=== PATIENT | male | born 1940 | race Caucasian/White ===

== ENCOUNTER 2020-08-11 08:25 | Emergency (ER) | payer OTHER, SELFPAY ==
[2020-08-11] VITALS (10 sets, daily range): BP systolic 134–174; BP diastolic 69–102; PULSE 51–80; RESP 12–18; TEMP 36.4; O2SAT 93–100; BMI 26.1
--- NOTE | 2020-08-11 08:34 | DI.RAD.S_ITS ---
PROCEDURE: XR ACUTE ABDOMEN SERIES INDICATIONS: SOB, Abdominal pain TECHNIQUE: One view chest and two views of the abdomen were acquired. COMPARISON: None. FINDINGS: Surgical changes and devices: None. Chest: Lungs are clear. Heart size is normal. No pleural effusions. No pneumoperitoneum. Abdomen: Bowel gas pattern is normal. Pelvic phleboliths. Visualized solid organ contours appear normal. Bones: No suspicious bony lesions. Diffuse degenerative changes of the spine. Mild degenerative changes of the hips. IMPRESSION: No evidence of an acute cardiopulmonary abnormality. Nonobstructive bowel gas pattern. Dictated by: Missael Diana D.O. on 08/11/2020 at 8:11 Approved by: Missael Diana D.O. on 08/11/2020 at 8:12
[2020-08-11] MEDS: SODIUM CHLORIDE 0.9% 1,000 ML 125 ML IV (08:40)
--- NOTE | 2020-08-11 08:41 | ED.SOB ---
HPI - SOB/Dyspnea General Chief Complaint: Abdominal Pain Stated Complaint: SOB, pancreas issues. Dr riddle Time Seen by Provider: 08/11/20 08:28 Source: patient Mode of arrival: Ambulatory Limitations: no limitations History of Present Illness HPI Narrative: 80-year-old male former smoker with history of pancreatic mass presents with his in the chief complaint of a 1-2 weeks of increasing abdominal swelling, discomfort and trouble breathing. He denies runny nose, sore throat or cough. He denies significant shortness of breath with exertion and bloating of his abdomen. He is not dizzy nor weak or lightheaded. He denies any recent travel or exposure to persons with known COVID. 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 He had been at his relative baseline 4 months until it started becoming symptomatic again. He has been to an outside emergency department twice in the past 2 weeks and has received blood work and CAT scans which (per the patient, we are awaiting records) that the cyst is back and doubled in size. He has been trying to get a referral back to GI at [facility] but has thus far been unsuccessful. MD Complaint: shortness of breath Onset (ago): week(s) Severity: moderate Consistency/Duration: constant Relieving factors: nothing Treatment prior to arrival: none Related Data Home oxygen amount: none Allergies Allergy/AdvReac Type Severity Reaction Status Date / Time No Known Drug Allergies Allergy Verified 08/11/20 08:39 Review of Systems Constitutional Constitutional: Denies chills, Denies fatigue, Denies fever(s), Denies frequent falls, Denies lethargy and Denies weakness Eyes Eyes: Denies change in vision, Denies eye discharge, Denies irritation and Denies loss of vision ENT Ears, Nose, Mouth, and Throat: Denies change in voice, Denies dizziness, Denies neck pain, Denies sore throat and Denies throat swelling Cardiovascular Cardiovascular: Denies chest pain, Denies irregular heart rhythm, Denies lightheadedness, Denies palpitations, Denies dyspnea, Denies dyspnea on exertion and Denies orthopnea Respiratory Respiratory: Denies cough, Denies dyspnea, Denies dyspnea on exertion and Denies wheezing Gastrointestinal Gastrointestinal: Reports abdominal pain, Reports bloating, Denies change in bowel habits, Denies diarrhea, Denies nausea and Denies vomiting Musculoskeletal Musculoskeletal: Denies neck pain and Denies numbness Integumentary/Breasts Skin/Breast: Denies pruritus, Denies erythema, Denies rash and Denies wounds Neurologic Neurologic: Denies behavioral changes, Denies confusion, Denies dizziness, Denies frequent falls, Denies loss of vision, Denies numbness and Denies weakness Psychiatric Psychiatric: Denies anxiety, Denies behavioral changes, Denies confusion, Denies depression, Denies homicidal ideation and Denies suicidal ideation Endocrine Endocrine: Denies fatigue, Denies flushing and Denies palpitations Hematologic/Lymphatic Hematologic/Lymphatic: Denies easy bruising Allergic/Immunologic Allergic/Immunologic: Denies urticaria, Denies throat swelling and Denies wheezing Patient History Social History Smoking Status: Former smoker Smoking Status: Former smoker Substance Use Type: does not use Exam Narrative Exam Narrative: GENERAL: [80] year old patient appears stated age. Well-nourished, well-developed patient, in mild distress. Some increased work of breathing HEAD: Atraumatic. Normocephalic. EYES: Pupils equal round and reactive. Extraocular motions intact. No scleral icterus. No injection or drainage. ENT: Nose without bleeding, purulent drainage. Throat without erythema, tonsillar hypertrophy or exudate. Airway patent. NECK: Trachea midline. Non tender CARDIOVASCULAR: Regular rate and rhythm without murmurs, gallops, or rubs. RESPIRATORY: Clear to auscultation. Breath sounds equal bilaterally. No wheezes, rales, or rhonchi. GASTROINTESTINAL: Distended, tender in the upper portions, bowel sounds distant but present EXTREMITIES: No edema or joint tenderness. BACK: Nontender without deformity or crepitance. No flank tenderness. NEURO: AOx3. SKIN: No rash or erythema of visible areas Initial Vital Signs Initial Vital Signs: Vital Signs Temperature 97.5 F L 08/11/20 08:25 Pulse Rate 72 08/11/20 08:25 Respiratory Rate 12 08/11/20 08:25 Blood Pressure 157/81 H 08/11/20 08:25 Pulse Oximetry 100 08/11/20 08:25 Course Orders Ordered: Discontinued Medications Hydromorphone HCl (Hydromorphone 0.5 Mg Inj) 0.5 mg IV NOW ONE Stop: 08/11/20 09:30 Last Admin: 08/11/20 09:39 Dose: 0.5 mg Documented by: HERBERT Sodium Chloride (Normal Saline 0.9%) 1,000 mls @ 125 mls/hr IV CONT DENNIS Last Admin: 08/11/20 08:40 Dose: 125 mls/hr Documented by: ТАТЬЯНА Consultations Consultation #1: call to Prov to consult with GI regarding next steps. Given no abnormal labs or US we discussed imaging. MRI vs. CT w/pancreatic protocol. No ability to do the MRI today. CT ordered upon completion of CT I called GI back, she will be sure to have the office call thursday for follow up. No indication for admission or transfer tonight. Pain control only. Vital Signs Vital signs: Vital Signs - 8 hr 08/11/20 11:30 08/11/20 12:09 08/11/20 12:11 Pulse Rate 54 L 63 60 Respiratory Rate Blood Pressure 143/72 H Pulse Oximetry 99 93 99 08/11/20 12:30 08/11/20 13:00 08/11/20 13:30 Pulse Rate 58 L 53 L 61 Respiratory Rate 18 Blood Pressure 134/69 134/69 Pulse Oximetry 99 99 98 MDM - SOB/Dyspnea Medical Records Medical records narrative: 0905 - records obtained from [facility] notes mass in tail of pancreas. Labs normal. Enhancing foci within the lateral segment of the left hepatic lobe as well as right and left hepatic lobe junction, 40 mm mass in tail of pancreas is suspicious for malignancy Lab Data Result diagrams: 08/11/20 08:39 08/11/20 08:39 Labs: Lab Results 08/11/20 08/11/20 08/11/20 Range/Units 08:39 08:39 08:39 WBC 6.2 (4.5-11.0) X10^3/uL RBC 4.75 (4.5-5.9) X10^6/uL Hgb 14.8 (13.5-17.5) g/dL Hct 43.2 (41-53) % MCV 90.8 (80-100) fL MCH 31.2 (26-34) PG MCHC 34.3 (30-36) % RDW 13.6 (11.6-14.8) % Plt Count 237 (150-400) X10^3/uL Neut % (Auto) 45.8 L (50-75) % Lymph % (Auto) 44.0 H (25-40) % [place] % (Auto) 7.7 (3-14) % Eos % (Auto) 1.7 L (2-4) % Baso % (Auto) 0.8 (0-2) % Neut # (Auto) 2800 (9324-0395) /uL Lymph # (Auto) 2700 (3219-1272) /uL [place] # (Auto) 500 (0-900) /uL Eos # (Auto) 100 (0-450) /uL Baso # (Auto) 0 (0-100) /uL PT 11.6 (10.1-12.7) SECONDS INR 1.0 (0.9-1.3) Sodium 140 (137-145) mmol/L Potassium 4.6 (3.4-5.1) mmol/L Chloride 106 (98-107) mmol/L Carbon Dioxide 26 (22-32) mmol/L BUN 15 (9-20) mg/dL Creatinine 0.73 (0.66-1.25) mg/dL Estimated GFR > 60.0 (>60) mL/min BUN/Creatinine Ratio 20.5 (6-22) Glucose 82 (80-110) mg/dL Lactate (0.7-2.1) mmol/L Calcium 9.8 (8.4-10.2) mg/dL Magnesium 1.9 (1.6-2.3) mg/dL Total Bilirubin 1.1 (0.2-1.3) mg/dL AST 47 (17-59) IU/L ALT 22 (<50) IU/L Alkaline Phosphatase 43 (38-126) U/L Total Creatine Kinase 257 H (55-170) U/L CK-MB (CK-2) 2.72 H (<2.37) ng/mL CK-MB (CK-2) Rel Index 1.1 L (1.5-5.0) % Troponin I 0.013 (0.01-0.034) ng/mL NT-Pro-B Natriuret Pep 108 (<450) pg/mL Total Protein 8.0 (6.3-8.2) g/dL Albumin 4.6 (3.5-5.0) g/dL Globulin 3.4 (1.7-4.1) g/dL Albumin/Globulin Ratio 1.4 (1.0-2.8) Lipase (23-300) U/L SARS-CoV-2 (PCR) (Negative) 08/11/20 08/11/20 08/11/20 Range/Units 08:39 08:39 08:55 WBC (4.5-11.0) X10^3/uL RBC (4.5-5.9) X10^6/uL Hgb (13.5-17.5) g/dL Hct (41-53) % MCV (80-100) fL MCH (26-34) PG MCHC (30-36) % RDW (11.6-14.8) % Plt Count (150-400) X10^3/uL Neut % (Auto) (50-75) % Lymph % (Auto) (25-40) % [place] % (Auto) (3-14) % Eos % (Auto) (2-4) % Baso % (Auto) (0-2) % Neut # (Auto) (3576-8401) /uL Lymph # (Auto) (4877-4170) /uL [place] # (Auto) (0-900) /uL Eos # (Auto) (0-450) /uL Baso # (Auto) (0-100) /uL PT (10.1-12.7) SECONDS INR (0.9-1.3) Sodium (137-145) mmol/L Potassium (3.4-5.1) mmol/L Chloride (98-107) mmol/L Carbon Dioxide (22-32) mmol/L BUN (9-20) mg/dL Creatinine (0.66-1.25) mg/dL Estimated GFR (>60) mL/min BUN/Creatinine Ratio (6-22) Glucose (80-110) mg/dL Lactate 1.7 (0.7-2.1) mmol/L Calcium (8.4-10.2) mg/dL Magnesium (1.6-2.3) mg/dL Total Bilirubin (0.2-1.3) mg/dL AST (17-59) IU/L ALT (<50) IU/L Alkaline Phosphatase (38-126) U/L Total Creatine Kinase (55-170) U/L CK-MB (CK-2) (<2.37) ng/mL CK-MB (CK-2) Rel Index (1.5-5.0) % Troponin I (0.01-0.034) ng/mL NT-Pro-B Natriuret Pep (<450) pg/mL Total Protein (6.3-8.2) g/dL Albumin (3.5-5.0) g/dL Globulin (1.7-4.1) g/dL Albumin/Globulin Ratio (1.0-2.8) Lipase 311 H (23-300) U/L SARS-CoV-2 (PCR) Negative (Negative) Imaging Data CT scan - abdomen/pelvis: Radiologist's Impression: Chart Viewer Diagnostics DATE TYPE STATUS REF RANGE/AUTHOR Hx 08/11/20 10:35 Lebron,Missael 08/11/20 08:46 Lebron,Missael 08/11/20 08:34 Missael Diana Rashaun Yang 80, M105/10/1939 [facility] ER, Main ED 180.34cm 85.049kg BMI: 26.2kg/m? Abdominal Pain Search Chart No Data to Display No Data to Display ONSET 08/11/20 13:30 Rashaun Yang 80 M [address] Scan ReportSigned Patient: Rashaun YangMR#: [id number]: 1940cct:[id number]/Sex: 80 / MDate of Service: 08/11/20Loc: EDAccession Number: [id number] Procedure: CT abdomen w con Ordering Provider: Samson Castaneda D.O. PROCEDURE: CT ABDOMEN W CON INDICATIONS: severe abdominal pain, distension, short of breath TECHNIQUE: After the administration of intravenous contrast, 5 mm thick sections acquired from the diaphragm to the iliac crests. 5 mm coronal and sagittal reformats were performed. For radiation dose reduction, the following was used: automated exposure control, adjustment of mA and/or kV according to patient size. COMPARISON: [facility], , US ABDOMEN COMPLETE, 08/11/2020, 9:29. CT abdomen pelvis dated 01/16/2020, 08/01/2020, and 08/09/2020 at [facility]. FINDINGS: Image quality: Excellent. Lung bases: Basilar atelectasis. There is a small hiatal hernia. Mild wall thickening of the distal esophagus. Recommend correlation for reflux. No pericardial effusion. Heart size is normal. Solid organs: Right hepatic lobe lesion is again identified which demonstrates peripheral nodular discontinuous enhancement with delayed centripetal filling. Left hepatic lobe enhancing lesion demonstrates enhancement with continued enhancement on the portal venous phase. Adjacent peripheral attenuation abnormalities likely represent attenuation differences. Subcentimeter left hepatic lobe hypodensity too small to further characterize but statistically represents a simple cyst and unchanged. Gallbladder is unremarkable. Biliary system is non dilated. Within the tail of the pancreas is a multilobulated cystic structure with enhancing septa and likely enhancing nodular component. This measures approximately 3.7 x 2.6 by 3.0 centimeters. This is grossly unchanged in size and appearance from comparison CTs. No surrounding inflammation. Spleen is normal in size and enhancement. No adrenal nodules. Kidneys demonstrate normal size and enhancement, without hydronephrosis. Stable left superior pole hypodensity likely representing simple cysts. Peritoneum and bowel: Bowel loops demonstrate normal wall thickness and caliber. No free fluid or air. Nodes and vessels: No retroperitoneal or mesenteric adenopathy by size criteria. Aorta and inferior vena cava are normal in size. Miscellaneous: No ventral hernias. Bilateral gynecomastia. IMPRESSION: No acute abnormality. Relatively stable appearance of pancreatic tail mass measuring up to 3.7 centimeters. This is concerning for malignancy. Recommend correlation with pathologic results if previously biopsied. Relatively stable hepatic lobe lesions. The right hepatic lobe lesion is most consistent with a hemangioma. The left hepatic lobe lesion although not definitive may represent a flash fill hemangioma. As previously recommended, consider non emergent liver MRI for further evaluation. Small hiatal hernia. Mild thickening of the distal esophagus which may be seen in the setting of reflux. Dictated by: Missael Diana D.O. on 08/11/2020 at 10:56 Approved by: Missael Diana D.O. on 08/11/2020 at 11:15 US - abdomen: Radiologist's Impression: Rashaun Yang 80 M [address] [id number] ReportSigned Patient: Rashaun YangMR#: [id number]: 2Acct:[id number]/Sex: 80 / MDate of Service: 08/11/20Loc: EDAccession Number: [id number] Procedure: US abdomen complete Ordering Provider: Samson Castaneda D.O. PROCEDURE: US ABDOMEN COMPLETE INDICATIONS: SWELLING ?ASCITES. KNOWN PANCREATIC CYST TECHNIQUE: Real-time scanning was performed of the abdominal and retroperitoneal organs, with image documentation. COMPARISON: None. FINDINGS: Somewhat limited examination given adjacent bowel gas Liver: Liver is normal in size and demonstrates slight increased echogenicity. Gallbladder: Is unremarkable with normal wall thickness. No evidence of stones or pericholecystic fluid. Negative sonographic Conway sign reported by the technologist. Biliary ducts: Intrahepatic bile ducts are non-dilated. Extrahepatic bile duct caliber measures 2.5 mm. Normal is 6-7 mm or less in diameter, or 10 mm or less post-cholecystectomy. Pancreas: The visualized portions of the head and body are unremarkable. There is a hypoechoic it heterogeneous region in the left upper quadrant at the expected location of the pancreatic tail adjacent to the splenic hilum which demonstrates peripheral vascularity without internal vascularity. This measures 3.6 x 3.4 x 3.6 centimeters. Spleen: Spleen is normal in size and homogeneous in echotexture. Punctate region of echogenicity likely representing small calcification. Kidneys: Kidneys are normal in size and echotexture. Right kidney measures 10.1 cm long; left kidney measures 10.9 cm long. No hydronephrosis or nephrolithiasis. No solid masses. Aorta: Visualized aorta is normal in caliber at less than 3 cm. Iliacs: Proximal common iliac arteries are normal in caliber at less than 2.5 cm. IVC: Intrahepatic inferior vena cava is patent. Miscellaneous: No free abdominal fluid. 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 No prior imaging is available for comparison. Consider cross-sectional imaging if further evaluation is necessary. Dictated by: Missael Diana D.O. on 08/11/2020 at 9:38 Approved by: Missael Diana D.O. on 08/11/2020 at 9:44 MDM Narrative Medical decision making narrative: Patient with increasing abdominal pain and shortness of breath over days to weeks. His vital signs are very reassuring and physical exam demonstrates clear lungs but a slightly distended. Labs are very reassuring and imaging would suggest that there is no surgical emergency. His pain is well controlled. He is ambulating without suggestion of respiratory distress. Extensive return precautions discussed with patient and his , questions answered to their apparent satisfaction Discharge Plan Departure Patient Disposition: Home Clinical Impression: Abdominal pain, epigastric Instructions: DI for Epigastric Pain Activity Restrictions/Additional Instructions: *You have been diagnosed with [epigastric pain, labs and CT are stable ] *What to do: *Please continue to take your regular medications as directed. *Please expect a call from Gastroenterology at [facility] on Thursday morning. If you do not hear from them by lunchtime please call them and remind them that you are here in the emergency department and I (Dr. Castaneda) *Return to Emergency Department if you should have any new, worsening or concerning symptoms, such as [fever greater than 101 F, shaking chills, worsening pain, persistent vomiting or other bothersome symptoms] Referrals: Alvarez Waddell MD [Primary Care Provider] -
--- NOTE | 2020-08-11 08:46 | DI.US.S_ITS ---
PROCEDURE: US ABDOMEN COMPLETE INDICATIONS: SWELLING ?ASCITES. KNOWN PANCREATIC CYST TECHNIQUE: Real-time scanning was performed of the abdominal and retroperitoneal organs, with image documentation. COMPARISON: None. FINDINGS: Somewhat limited examination given adjacent bowel gas Liver: Liver is normal in size and demonstrates slight increased echogenicity. Gallbladder: Is unremarkable with normal wall thickness. No evidence of stones or pericholecystic fluid. Negative sonographic Conway sign reported by the technologist. Biliary ducts: Intrahepatic bile ducts are non-dilated. Extrahepatic bile duct caliber measures 2.5 mm. Normal is 6-7 mm or less in diameter, or 10 mm or less post-cholecystectomy. Pancreas: The visualized portions of the head and body are unremarkable. There is a hypoechoic it heterogeneous region in the left upper quadrant at the expected location of the pancreatic tail adjacent to the splenic hilum which demonstrates peripheral vascularity without internal vascularity. This measures 3.6 x 3.4 x 3.6 centimeters. Spleen: Spleen is normal in size and homogeneous in echotexture. Punctate region of echogenicity likely representing small calcification. Kidneys: Kidneys are normal in size and echotexture. Right kidney measures 10.1 cm long; left kidney measures 10.9 cm long. No hydronephrosis or nephrolithiasis. No solid masses. Aorta: Visualized aorta is normal in caliber at less than 3 cm. Iliacs: Proximal common iliac arteries are normal in caliber at less than 2.5 cm. IVC: Intrahepatic inferior vena cava is patent. Miscellaneous: No free abdominal fluid. 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 No prior imaging is available for comparison. Consider cross-sectional imaging if further evaluation is necessary. Dictated by: Missael Diana D.O. on 08/11/2020 at 9:38 Approved by: Missael Diana D.O. on 08/11/2020 at 9:44
[2020-08-11 08:53] LABS: Add Manual Diff / Slide Review NO; Basophils Absolute Auto 0 /uL (0-100); Basophils Percent Auto 0.8 % (0-2); Eosinophils Absolute Auto 100 /uL (0-450); Eosinophils Percent Auto 1.7 % (2-4); Hematocrit 43.2 % (41-53); Hemoglobin 14.8 g/dL (13.5-17.5); Lymphocytes Absolute Auto 2700 /uL (1100-4500); Mean Corpuscular HGB Conc 34.3 % (30-36); Mean Corpuscular Hemoglobin 31.2 PG (26-34); Mean Corpuscular Volume 90.8 fL (80-100); Monocytes Absolute Auto 500 /uL (0-900); Monocytes Percent Auto 7.7 % (3-14); Neutrophils Absolute Auto 2800 /uL (1500-7000); Neutrophils Percent Auto 45.8 % (50-75); Platelet Count 237 X10^3/uL (150-400); Red Blood Cell Count 4.75 X10^6/uL (4.5-5.9); Red Cell Distribution Width 13.6 % (11.6-14.8); White Blood Cell Count 6.2 X10^3/uL (4.5-11.0)
[2020-08-11 08:57] LABS: Prothrombin Time 11.6 SECONDS (10.1-12.7)
[2020-08-11 09:02] LABS: Lactate (Lactic Acid) 1.7 mmol/L (0.7-2.1)
[2020-08-11 09:03] LABS: Alanine Aminotransferase 22 IU/L (<50); Albumin 4.6 g/dL (3.5-5.0); Albumin Globulin Ratio 1.4 (1.0-2.8); Alkaline Phosphatase 43 U/L (38-126); Aspartate Aminotransferase 47 IU/L (17-59); BUN Creatinine Ratio 20.5 (6-22); Bilirubin Total 1.1 mg/dL (0.2-1.3); Blood Urea Nitrogen 15 mg/dL (9-20); Calcium 9.8 mg/dL (8.4-10.2); Carbon Dioxide 26 mmol/L (22-32); Chloride 106 mmol/L (98-107); Creatine Kinase 257 U/L (55-170); Estimated Glomerular Filt Rate > 60.0 mL/min (>60); Globulin 3.4 g/dL (1.7-4.1); Glucose 82 mg/dL (80-110); Magnesium 1.9 mg/dL (1.6-2.3); Potassium 4.6 mmol/L (3.4-5.1); Sodium 140 mmol/L (137-145)
[2020-08-11 09:13] LABS: COVID19 -Nasal RAPID Negative (Negative)
[2020-08-11 09:15] LABS: NT-proBNP (BNP-Adult 18+) 108 pg/mL (<450); Troponin I 0.013 ng/mL (0.01-0.034)
[2020-08-11 09:18] LABS: CKMB % Relative Index 1.1 % (1.5-5.0); Creatine Kinase MB 2.72 ng/mL (<2.37)
[2020-08-11 09:19] LABS: HEMOLYSIS 153 (0-50)
[2020-08-11] MEDS: HYDROMORPHONE 0.5 MG INJ IV (09:39)
--- NOTE | 2020-08-11 10:35 | DI.CT.S_ITS ---
PROCEDURE: CT ABDOMEN W CON INDICATIONS: severe abdominal pain, distension, short of breath TECHNIQUE: After the administration of intravenous contrast, 5 mm thick sections acquired from the diaphragm to the iliac crests. 5 mm coronal and sagittal reformats were performed. For radiation dose reduction, the following was used: automated exposure control, adjustment of mA and/or kV according to patient size. COMPARISON: [facility], , US ABDOMEN COMPLETE, 08/11/2020, 9:29. CT abdomen pelvis dated 01/16/2020, 08/01/2020, and 08/09/2020 at [facility]. FINDINGS: Image quality: Excellent. Lung bases: Basilar atelectasis. There is a small hiatal hernia. Mild wall thickening of the distal esophagus. Recommend correlation for reflux. No pericardial effusion. Heart size is normal. Solid organs: Right hepatic lobe lesion is again identified which demonstrates peripheral nodular discontinuous enhancement with delayed centripetal filling. Left hepatic lobe enhancing lesion demonstrates enhancement with continued enhancement on the portal venous phase. Adjacent peripheral attenuation abnormalities likely represent attenuation differences. Subcentimeter left hepatic lobe hypodensity too small to further characterize but statistically represents a simple cyst and unchanged. Gallbladder is unremarkable. Biliary system is non dilated. Within the tail of the pancreas is a multilobulated cystic structure with enhancing septa and likely enhancing nodular component. This measures approximately 3.7 x 2.6 by 3.0 centimeters. This is grossly unchanged in size and appearance from comparison CTs. No surrounding inflammation. Spleen is normal in size and enhancement. No adrenal nodules. Kidneys demonstrate normal size and enhancement, without hydronephrosis. Stable left superior pole hypodensity likely representing simple cysts. Peritoneum and bowel: Bowel loops demonstrate normal wall thickness and caliber. No free fluid or air. Nodes and vessels: No retroperitoneal or mesenteric adenopathy by size criteria. Aorta and inferior vena cava are normal in size. Miscellaneous: No ventral hernias. Bilateral gynecomastia. IMPRESSION: No acute abnormality. Relatively stable appearance of pancreatic tail mass measuring up to 3.7 centimeters. This is concerning for malignancy. Recommend correlation with pathologic results if previously biopsied. Relatively stable hepatic lobe lesions. The right hepatic lobe lesion is most consistent with a hemangioma. The left hepatic lobe lesion although not definitive may represent a flash fill hemangioma. As previously recommended, consider non emergent liver MRI for further evaluation. Small hiatal hernia. Mild thickening of the distal esophagus which may be seen in the setting of reflux. Dictated by: Missael Diana D.O. on 08/11/2020 at 10:56 Approved by: Missael Diana D.O. on 08/11/2020 at 11:15
[2020-08-11 11:33] LABS: Lipase 311 U/L (23-300)
--- NOTE | 2020-08-15 10:41 | PC.NURSE ---
Late entry: 1 L NS stopped at 1350
== END 2020-08-11 14:02 | disposition home or self-care (01) ==
PROVIDERS: Emergency Provider Emergency Medicine; PCP Internal Medicine
DX: R10.13 Epigastric pain (principal); R06.02 Shortness of breath; Z20.822 Contact with and (suspected) exposure to COVID-19
CPT/HCPCS: 36415; 74022; 74160; 76700; 80053; 82550; 82553; 83605; 83690; 83735; 83880; 84484; 85025; 85610; 87635; 96361; 96374; 99284; C9803; J1170; Q9967

== ENCOUNTER → 2020-09-08 09:22 | Outpatient (CLI) | payer OTHER, SELFPAY ==
[2020-09-08 11:15] LABS: COVID19 -Nasal RAPID Negative (Negative)
== END ==
PROVIDERS: PCP Internal Medicine; Visit Provider Physician Assistant
DX: Z01.812 Encounter for preprocedural laboratory examination (principal); Z20.822 Contact with and (suspected) exposure to COVID-19
CPT/HCPCS: 87635; C9803

== ENCOUNTER → 2020-09-10 07:09 | Outpatient (CLI) | payer OTHER, SELFPAY ==
--- NOTE | 2020-09-10 | DI.NM.S_ITS ---
PROCEDURE: NM EFRAIN PERF SPECT REST & STR Rest and exercise myocardial perfusion SPECT with gated imaging and ejection fraction RADIOPHARMACEUTICAL: 9.0 mCi Tc-99m sestamibi IV at rest and 27.1 mCi Tc-99m sestamibi IV at peak exercise. A one day-protocol was performed. INDICATIONS: Other chest pain TECHNIQUE: Radiopharmaceutical was injected at peak stress test, and also at rest. SPECT images were obtained. SPECT myocardial perfusion images were displayed in short axis, horizontal long axis, and vertical long axis views. Gated images were reviewed using [employer] software. COMPARISON: None. CARDIAC STRESS: A standard Andre treadmill exercise tolerance test was performed by the patient under the supervision of an attending staff. The patient exercised for 5 minutes and 30 seconds; functional aerobic impairment (RUDDY) is 1%. Hemodynamic data: There is normal blood pressure and heart rate response to exercise stress. Patient achieved 107% of maximum predicted heart rate at peak exercise. Symptoms: Patient denied chest pain during exercise. EKG: No diagnostic EKG changes of ischemia; no ectopy. FINDINGS: Raw data: There is good myocardial labeling by radiotracer. No significant motion artifacts. Hutg-sn-snzgv ratio is 0.35 (normal is less than 0.38 for sestamibi tracer, and less than 0.50 for thallium tracer). Left ventricle function: Gated images demonstrate normal left ventricle wall thickening. No segmental wall motion abnormality. No transient ischemic dilation; TID is 1.23 (normal less than 1.3). The left ventricle resting end-diastolic volume is 76 mL. Left ventricle stress ejection fraction is 71%; normal values are above 45%. Myocardial perfusion: There is mildly intense basal to mid inferior wall defect that resolves with prone imaging, suggesting attenuation artifact. No ischemia or infarction. IMPRESSION: Low risk, probably normal treadmill nuclear stress test 1) No perfusion evidence of ischemia or infarction. 2) Normal left ventricular size, wall motion, and systolic function (EF post stress 71%). 3) No ECG evidence of ischemia. 4) No angina during the study. 5) Average exercise tolerance (6.4 METs, RUDDY 1%). Taerget heart rate achieved. Appropriate BP response to exercise. 6) No anging during the study. Dictated by: Marilu Wilcox MD on 09/11/2020 at 16:14 Approved by: Marilu Wilcox MD on 09/11/2020 at 16:17
--- NOTE | 2020-09-10 11:42 | PM.TREADMILL ---
Cardiac Stress Test Report Referral & Results Date Patient Seen: 09/10/20 Time Patient Seen: 11:42 Requesting provider: Alvarez Waddell Indication: Chest pain Rest ECG: Sinus rhythm Procedure Note: Standard Andre protocol, 5:30, 6.4 METS Good exercise capacity, RUDDY -1% Normal hemodynamic response to exercise No chest pain or anginal symptoms No significant ST changes at peak exercise No ectopy Impression: Normal exercise stress test Please note: Actual ECG tracings can be found in the PACS system.
== END ==
PROVIDERS: PCP Internal Medicine; Referring Provider Internal Medicine; Visit Provider Internal Medicine
DX: R07.89 Other chest pain (principal)
CPT/HCPCS: 78452; 93017; A9502

== ENCOUNTER 2021-05-08 09:37 | Emergency (ER) | payer OTHER, SELFPAY ==
[2021-05-08] VITALS (9 sets, daily range): BP systolic 120–153; BP diastolic 59–84; PULSE 58–75; RESP 16–18; TEMP 36.4; O2SAT 94–100; BMI 25.1
--- NOTE | 2021-05-08 09:52 | ED_ITS ---
HPI - Abdominal Pain General Chief Complaint: Abdominal Pain Stated Complaint: severe side/abdominal/under rib pain Time Seen by Provider: 05/08/21 09:47 History of Present Illness HPI narrative: ?81-year-old male former smoker with history of pancreatic mass presents with his in the chief complaint of ongoing left lower quadrant pain for many months. He states that is been present for quite some time and he has had extensive workups including MRIs, ultrasounds, CTs colonoscopy without any significant findings. He was initially seen here back in July and had been told he has a mass on the tail of his pancreas which was at the time concerning for malignancy but per the patient has not turned out to be anything. He denies any fever or chills. He has had no nausea or vomiting but does complain of poor appetite. He denies any dysuria, frequency or urgency. He denies any constipation or diarrhea. Related Data Allergies Allergy/AdvReac Type Severity Reaction Status Date / Time No Known Drug Allergies Allergy Verified 08/11/20 08:39 Review of Systems Review of Systems Narrative: GENERAL: Denies chills, fatigue, malaise, fever, sweats. HEENT: Denies sinus pain, ear pain, sore throat, difficulty swallowing, dizziness. RESPIRATORY: Denies dyspnea, cough, wheezing, hemoptysis, sputum. CARDIOVASCULAR: Denies chest pain, palpitations, orthopnea, edema, GASTROINTESTINAL: See HPI : Denies dysuria, frequency, incontinence, hematuria, urinary retention. MUSCULOSKELETAL: denies weakness, joint pain, or bony pain SKIN: Denies rash, skin lesions, or other NEUROLOGIC: Denies weakness, headache, numbness, change in speech, confusion, seizures, incoordination. PSYCHIATRIC: No concerning psychosocial issues. 12 point review of systems is negative except for those stated above Patient History Social History Smoking Status: Former smoker Smoking Status: Former smoker Substance Use Type: does not use Exam Narrative Exam Narrative: GENERAL: [81 year old patient appears stated age. Well-developed patient, in mild distress. HEAD: Atraumatic. Normocephalic. EYES: Pupils equal round and reactive. Extraocular motions intact. No scleral icterus. No injection or drainage. ENT: Nose without bleeding, purulent drainage. Throat without erythema, tonsillar hypertrophy or exudate. Airway patent. NECK: Trachea midline. Non tender CARDIOVASCULAR: Regular rate and rhythm without murmurs, gallops, or rubs. RESPIRATORY: Clear to auscultation. Breath sounds equal bilaterally. No wheezes, rales, or rhonchi. GASTROINTESTINAL: Abdomen soft, tender throughout the abdomen, mild distension, bowel sounds present EXTREMITIES: No edema or joint tenderness. BACK: Nontender without deformity or crepitance. No flank tenderness. NEURO: AOx3. SKIN: No rash or erythema of visible areas Initial Vital Signs Initial Vital Signs: Vital Signs Pulse Rate 73 05/08/21 09:47 Pulse Oximetry 97 05/08/21 09:47 Course Orders Ordered: ED Orders 05/08/21 10:14 CT chest abd pel w con Stat Discontinued Medications Sodium Chloride (Normal Saline 0.9%) 1,000 mls @ 1,000 mls/hr IV BOLUS ONE Stop: 05/08/21 10:50 Last Infusion: 05/08/21 11:36 Dose: 0 mls/hr Documented by: Admin: 05/08/21 10:13 Dose: 1,000 mls/hr Documented by: HERBERT Vital Signs Vital signs: Vital Signs - 8 hr 05/08/21 11:43 05/08/21 11:44 05/08/21 12:00 Pulse Rate 66 58 L 67 Respiratory Rate 16 Blood Pressure 120/59 L 127/84 Pulse Oximetry 97 100 98 MDM - Abdominal Pain Lab Data Result diagrams: 05/08/21 09:59 05/08/21 09:59 Labs: Lab Results 05/08/21 05/08/21 05/08/21 Range/Units 09:59 09:59 09:59 WBC 7.1 (4.5-11.0) X10^3/uL RBC 4.69 (4.5-5.9) X10^6/uL Hgb 14.6 (13.5-17.5) g/dL Hct 42.4 (41-53) % MCV 90.3 (80-100) fL MCH 31.0 (26-34) PG MCHC 34.3 (30-36) % RDW 13.6 (11.6-14.8) % Plt Count 277 (150-400) X10^3/uL Neut % (Auto) 51.0 (50-75) % Lymph % (Auto) 38.0 (25-40) % Archuleta % (Auto) 8.8 (3-14) % Eos % (Auto) 1.5 L (2-4) % Baso % (Auto) 0.7 (0-2) % Neut # (Auto) 3600 (9505-4173) /uL Lymph # (Auto) 2700 (6779-8513) /uL Archuleta # (Auto) 600 (0-900) /uL Eos # (Auto) 100 (0-450) /uL Baso # (Auto) 100 (0-100) /uL Sodium 137 (137-145) mmol/L Potassium 4.2 (3.4-5.1) mmol/L Chloride 102 (98-107) mmol/L Carbon Dioxide 27 (22-32) mmol/L BUN 18 (9-20) mg/dL Creatinine 0.88 (0.66-1.25) mg/dL Estimated GFR > 60.0 (>60) mL/min BUN/Creatinine Ratio 20.5 (6-22) Glucose 103 (80-110) mg/dL Calcium 9.6 (8.4-10.2) mg/dL Total Bilirubin 0.8 (0.2-1.3) mg/dL AST 30 (17-59) IU/L ALT 22 (<50) IU/L Alkaline Phosphatase 54 (38-126) U/L Lactate Dehydrogenase 432 (313-618) U/L Total Protein 8.0 (6.3-8.2) g/dL Albumin 4.8 (3.5-5.0) g/dL Globulin 3.2 (1.7-4.1) g/dL Albumin/Globulin Ratio 1.5 (1.0-2.8) Lipase 205 (23-300) U/L Point of care testing: Urine Dip Bedside Urine Glucose Negative Bedside Urine Bilirubin - Negative Bedside Urine Ketone - Negative Urine Specific [place] 1.015 Bedside Urine Occult Blood - Negative Bedside Urine pH 6.5 Bedside Urine Protein - Negative Bedside Urine Urobilinogen - Negative Bedside Urine Nitrite - Negative Bedside Urine Leukocytes - Negative Esterase Imaging Data CT scan - abdomen/pelvis: Radiologist's Impression: Launch?[address] [address] [address] Scan Report Signed Patient: Rashaun Yang MR#: [id number] : 1940 Acct:[id number] Age/Sex: 81 / M Date of Service: 05/08/21 Loc: ED Accession Number: [id number] ?? Procedure: CT chest abd pel w con Ordering Provider: Samson Castaneda D.O. PROCEDURE:? CT CHEST ABD PEL W CON ? INDICATIONS:? severe epigastric and LLQ pain, pancreatic mass ? TECHNIQUE:? After the administration of oral and intravenous contrast, axial sections acquired from the supraclavicular neck to the pubic symphysis.? Coronal and sagittal reformats were performed.? For radiation dose reduction, the following was used:? automated exposure control, adjustment of mA and/or kV according to patient size.? ? COMPARISON:[facility], CT, CT ABDOMEN W CON, 08/11/2020, 11:05. ? FINDINGS:? Image quality:? Excellent.? ? CHEST: Lower Neck: No enlarged lymph nodes.? Thyroid:? Within normal limits. Axillae: No enlarged lymph nodes. Chest Wall:? Unremarkable.? ? Lungs and Airways:? Mild centrilobular emphysema is seen.? Scattered atelectasis in periphery of bilateral lung durand are noted.? There is a 4 mm solid nodule seen in right minor fissure series 3, image 215.? Scarring/atelectasis in posterior and medial aspect of bilateral lung bases are seen. Pleura: No pneumothorax or pleural effusions.? ? Heart: Heart size is mildly enlarged.? No pericardial effusion. Thoracic Vessels: The aorta and pulmonary arteries demonstrate normal size.? Mediastinum and Keila: No enlarged lymph nodes.? Esophagus: No wall thickening.? There is a small hiatal hernia. ? ? ABDOMEN: Liver:? Oval hyperenhancing nodule in right hepatic dome is again seen and measures 1.6 cm in size unchanged from prior study series 2, image 59. Ill-defined enhancing lesion involving medial segment of left hip is again seen grossly unchanged in size and appearance from prior study series 2, image 59.? Tiny well-circumscribed hypodensities also seen in medial and lateral segment of left hepatic lobe measures 4 and 6 mm in size series 2 images 60 and 66 unchanged from prior study.? No new hepatic lesion is noted.? Gallbladder:? Within normal limits. Biliary ducts:? Unremarkable.? ? Pancreas:? 3.5 x 3.5 x 3.6 cm lobulated hypodense lesion involving pancreatic tail is again seen series 4, image 38 and series 2, image 64 compared to 3.7 x 2.6 x 3.0 cm on previous study.? Rest of the pancreas show normal enhancement without additional lesion.? No peripancreatic inflammatory changes. Spleen:? Unremarkable.? ? Adrenal Glands:? Unremarkable.? ? Kidneys and Ureters:? Unremarkable.? ? ? Stomach and Bowel:? There is no bowel obstruction.? No abnormal bowel wall thickening or mesenteric fat stranding.? Distal descending and sigmoid diverticulosis is seen, no definite CT evidence of acute diverticulitis. Peritoneum:? No abnormal intraperitoneal fluid.? No free air.? ? Ventral Wall: ? No hernia.? Abdominal Nodes:? No retroperitoneal or mesenteric adenopathy by size criteria.? Vessels:? Aorta and inferior vena cava are normal in size.? ? PELVIS: Pelvic Organs:? Markedly enlarged prostate gland is seen with significant mass effect on floor of urinary bladder. Bladder:? There is mild diffuse bladder wall thickening, no definite discrete bladder wall mass seen. Pelvic Nodes: No enlarged lymph nodes.? Miscellaneous: No inguinal hernias are seen. ? ? ? Bones:? No suspicious bony lesion.? 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 No acute vertebral body compression fracture.? Osteoarthritic changes are seen in bony pelvis. ? IMPRESSION:? ? 1.? Interval slight increase in size of patient's known lobulated hypodense lesion involving pancreatic tail.? No new pancreatic lesion is seen.? No peripancreatic inflammatory changes.? Spleen is normal in size and appearance. ? 2.? 4 mm solid nodule in right minor fissure which may represent intrafissural lymph node.? No other pulmonary nodule is seen.? Mild centrilobular emphysema.? Scattered scarring/atelectasis in bilateral lung durand more prominent at lung bases.? No pleural effusion or pneumothorax. ? 3.? No lymphadenopathy is seen in chest, abdomen or pelvis. ? 4. Markedly enlarged prostate gland with mass effect on floor of urinary ivette dder.? Mild diffuse bladder wall thickening, no definite discrete bladder wall mass is seen. ? 5. Descending and sigmoid colon diverticulosis.? No definite CT evidence of acute diverticulitis.? Small hiatal hernia.? No bowel obstruction.? No free fluid or free air. ? 6. Patient's known enhancing right and left hepatic lobe lesions are stable in size and appearance.? These could represent flash hemangioma.? Continued CT or MR follow- up is recommended.? Dictated by: Hira Jacobs M.D. on 05/08/2021 at 11:17 ? ? Approved by: Hira Jacobs M.D. on 05/08/2021 at 11:40 ? MDM Narrative Medical decision making narrative: Patient's history and physical are very reassuring. His pain is been present for many months. He has no vomiting or fever. Labs are reassuring. Imaging demonstrates no significant findings. His pain is controlled, he is tolerating oral hydration, return precautions discussed and questions answered to his apparent satisfaction Discharge Plan Departure Patient Disposition: Home Clinical Impression: Abdominal pain, acute, left lower quadrant Instructions: DI for Abdominal Pain-Adult Activity Restrictions/Additional Instructions: *You have been diagnosed with [chronic left lower quadrant pain. Labs and imaging today are very reassuring *What to do: *Please continue to take your regular medications as directed. [ ] New medication prescriptions sent to your pharmacy: [ ] [ ] New medication written as a paper prescription [x ] No new medications given *Please follow up with your primary care provider in 2-3 days, call for an appointment. Let them know you were seen in the Emergency Department and that we ask that you be seen in follow up. We will electronically transmit a record of today's note if your PCP is in our system *If you do not have a primary care provider please contact the [facility] Resource line at [phone]. They will ask some questions about your medical history and help get you set up with a doctor in the community. *Return to Emergency Department if you should have any new, worsening or concerning symptoms, such as [fever greater than 101 F, shaking chills, worsening pain, persistent vomiting or other bothersome symptoms] Referrals: Corky Jacques MD [Primary Care Provider] -
[2021-05-08] MEDS: SODIUM CHLORIDE 0.9% 1,000 ML 1000 ML IV (10:13)
[2021-05-08 10:14] LABS: Add Manual Diff / Slide Review NO; Basophils Absolute Auto 100 /uL (0-100); Basophils Percent Auto 0.7 % (0-2); Eosinophils Absolute Auto 100 /uL (0-450); Eosinophils Percent Auto 1.5 % (2-4); Hematocrit 42.4 % (41-53); Hemoglobin 14.6 g/dL (13.5-17.5); Lymphocytes Absolute Auto 2700 /uL (1100-4500); Mean Corpuscular HGB Conc 34.3 % (30-36); Mean Corpuscular Volume 90.3 fL (80-100); Monocytes Absolute Auto 600 /uL (0-900); Monocytes Percent Auto 8.8 % (3-14); Neutrophils Absolute Auto 3600 /uL (1500-7000); Platelet Count 277 X10^3/uL (150-400); Red Blood Cell Count 4.69 X10^6/uL (4.5-5.9); Red Cell Distribution Width 13.6 % (11.6-14.8); White Blood Cell Count 7.1 X10^3/uL (4.5-11.0)
--- NOTE | 2021-05-08 10:14 | DI.CT.S_ITS ---
PROCEDURE: CT CHEST ABD PEL W CON INDICATIONS: severe epigastric and LLQ pain, pancreatic mass TECHNIQUE: After the administration of oral and intravenous contrast, axial sections acquired from the supraclavicular neck to the pubic symphysis. Coronal and sagittal reformats were performed. For radiation dose reduction, the following was used: automated exposure control, adjustment of mA and/or kV according to patient size. COMPARISON:[facility], CT, CT ABDOMEN W CON, 08/11/2020, 11:05. FINDINGS: Image quality: Excellent. CHEST: Lower Neck: No enlarged lymph nodes. Thyroid: Within normal limits. Axillae: No enlarged lymph nodes. Chest Wall: Unremarkable. Lungs and Airways: Mild centrilobular emphysema is seen. Scattered atelectasis in periphery of bilateral lung durand are noted. There is a 4 mm solid nodule seen in right minor fissure series 3, image 215. Scarring/atelectasis in posterior and medial aspect of bilateral lung bases are seen. Pleura: No pneumothorax or pleural effusions. Heart: Heart size is mildly enlarged. No pericardial effusion. Thoracic Vessels: The aorta and pulmonary arteries demonstrate normal size. Mediastinum and Keila: No enlarged lymph nodes. Esophagus: No wall thickening. There is a small hiatal hernia. ABDOMEN: Liver: Oval hyperenhancing nodule in right hepatic dome is again seen and measures 1.6 cm in size unchanged from prior study series 2, image 59. Ill-defined enhancing lesion involving medial segment of left hip is again seen grossly unchanged in size and appearance from prior study series 2, image 59. Tiny well-circumscribed hypodensities also seen in medial and lateral segment of left hepatic lobe measures 4 and 6 mm in size series 2 images 60 and 66 unchanged from prior study. No new hepatic lesion is noted. Gallbladder: Within normal limits. Biliary ducts: Unremarkable. Pancreas: 3.5 x 3.5 x 3.6 cm lobulated hypodense lesion involving pancreatic tail is again seen series 4, image 38 and series 2, image 64 compared to 3.7 x 2.6 x 3.0 cm on previous study. Rest of the pancreas show normal enhancement without additional lesion. No peripancreatic inflammatory changes. Spleen: Unremarkable. Adrenal Glands: Unremarkable. Kidneys and Ureters: Unremarkable. Stomach and Bowel: There is no bowel obstruction. No abnormal bowel wall thickening or mesenteric fat stranding. Distal descending and sigmoid diverticulosis is seen, no definite CT evidence of acute diverticulitis. Peritoneum: No abnormal intraperitoneal fluid. No free air. Ventral Wall: No hernia. Abdominal Nodes: No retroperitoneal or mesenteric adenopathy by size criteria. Vessels: Aorta and inferior vena cava are normal in size. PELVIS: Pelvic Organs: Markedly enlarged prostate gland is seen with significant mass effect on floor of urinary bladder. Bladder: There is mild diffuse bladder wall thickening, no definite discrete bladder wall mass seen. Pelvic Nodes: No enlarged lymph nodes. Miscellaneous: No inguinal hernias are seen. Bones: No suspicious bony lesion. 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 No acute vertebral body compression fracture. Osteoarthritic changes are seen in bony pelvis. IMPRESSION: 1. Interval slight increase in size of patient's known lobulated hypodense lesion involving pancreatic tail. No new pancreatic lesion is seen. No peripancreatic inflammatory changes. Spleen is normal in size and appearance. 2. 4 mm solid nodule in right minor fissure which may represent intrafissural lymph node. No other pulmonary nodule is seen. Mild centrilobular emphysema. Scattered scarring/atelectasis in bilateral lung durand more prominent at lung bases. No pleural effusion or pneumothorax. 3. No lymphadenopathy is seen in chest, abdomen or pelvis. 4. Markedly enlarged prostate gland with mass effect on floor of urinary bladder. Mild diffuse bladder wall thickening, no definite discrete bladder wall mass is seen. 5. Descending and sigmoid colon diverticulosis. No definite CT evidence of acute diverticulitis. Small hiatal hernia. No bowel obstruction. No free fluid or free air. 6. Patient's known enhancing right and left hepatic lobe lesions are stable in size and appearance. These could represent flash hemangioma. Continued CT or MR follow-up is recommended. Dictated by: Hira Jacobs M.D. on 05/08/2021 at 11:17 Approved by: Hira Jacobs M.D. on 05/08/2021 at 11:40
[2021-05-08 10:22] LABS: Alanine Aminotransferase 22 IU/L (<50); Albumin 4.8 g/dL (3.5-5.0); Albumin Globulin Ratio 1.5 (1.0-2.8); Alkaline Phosphatase 54 U/L (38-126); Aspartate Aminotransferase 30 IU/L (17-59); BUN Creatinine Ratio 20.5 (6-22); Bilirubin Total 0.8 mg/dL (0.2-1.3); Blood Urea Nitrogen 18 mg/dL (9-20); Calcium 9.6 mg/dL (8.4-10.2); Carbon Dioxide 27 mmol/L (22-32); Chloride 102 mmol/L (98-107); Estimated Glomerular Filt Rate > 60.0 mL/min (>60); Globulin 3.2 g/dL (1.7-4.1); Glucose 103 mg/dL (80-110); HEMOLYSIS < 15 (0-50); Lactate Dehydrogenase 432 U/L (313-618); Lipase 205 U/L (23-300); Potassium 4.2 mmol/L (3.4-5.1); Sodium 137 mmol/L (137-145)
== END 2021-05-08 12:15 | disposition home or self-care (01) ==
PROVIDERS: Emergency Provider Emergency Medicine; PCP Family Medicine
DX: R10.32 Left lower quadrant pain (principal); Z87.891 Personal history of nicotine dependence
CPT/HCPCS: 36415; 71260; 74177; 80053; 81003; 83615; 83690; 85025; 93005; 93010; 96360; 99284; Q9967